=== PATIENT | female | born 1985 | race Caucasian/White ===

== ENCOUNTER 2021-07-15 17:40 | Emergency (ER) | payer SELFPAY ==
[~2021-07-15] VITALS: Ht 154.9 cm; Wt 100.0 kg
[2021-07-15 19:55] LABS: COLLECTION METHOD CLEAN CATCH
[2021-07-15 20:02] LABS: BASO % 0.3 % (0.0-2.0); EOS # 0.1 K/mm3 (0.0-0.7); EOS % 0.7 % (0-4.0); GRAN # 9.9 K/mm3 (1.4-6.5); GRAN % 73.7 % (42.2-75.2); HEMATOCRIT 40.9 % (37.0-47.0); HEMOGLOBIN 13.8 g/dl (12.5-16.0); LYMPH # 2.8 K/mm3 (1.2-3.4); LYMPH % 20.6 % (20.0-51.0); MEAN CELL VOLUME 90 fl (80.0-100.0); MEAN CORPUSCULAR HEMOGLOBIN 30 pg (27.0-31.0); MEAN CORPUSCULAR HGB CONC 34 g/dl (33.0-37.0); MONO # 0.6 K/mm3 (0.1-0.6); MONO % 4.2 % (1.7-9.3); PLATELET COUNT 325 K/mm3 (130-400); RED BLOOD COUNT 4.54 M/mm3 (4.10-5.30); REDCELL DISTRIBUTION WIDTH-CV 12.2 % (11.5-14.5)
[2021-07-15 20:12] LABS: AMORPHOUS CRYSTAL Present (NOT PRESENT); MUCOUS Present (NOT PRESENT); PH 5 (5-8); SQUAMOUS EPITHELIAL 20-50 /hpf (0-10); URINE APPEARANCE Cloudy (CLEAR/HAZY); URINE BACTERIA Rare (NONE SEEN); URINE BILIRUBIN Negative (NEGATIVE); URINE BLOOD Negative (NEGATIVE); URINE COLOR Yellow (YELLOW); URINE GLUCOSE 3+ (NEGATIVE); URINE KETONE Trace (NEGATIVE); URINE LEUKOCYTE ESTERASE Negative (NEGATIVE); URINE NITRATE Negative (NEGATIVE); URINE PROTEIN(semi-quant) Negative (NEGATIVE); URINE UROBILINOGEN Negative (NEGATIVE)
[2021-07-15 20:21] LABS: ALBUMIN 3.7 gm/dL (3.5-5.0); BILIRUBIN,TOTAL 0.4 mg/dL (0.2-1.2); C-REACTIVE PROTEIN 2.08 mg/dL (0.00-0.50); CALCIUM 9.1 mg/dL (8.4-10.2); CREATININE, serum 0.83 mg/dL (0.57-1.11); POTASSIUM 3.7 mmol/L (3.5-4.5); TOTAL PROTEIN 7.2 gm/dL (6.2-8.1)
[2021-07-15] MEDS ORDERED: NORCO 325 MG-51 TAB PO (21:55)
[2021-07-15 22:20] VITALS: BP 136/64; PULSE 88; TEMP 98.6
== END 2021-07-15 22:25 | disposition home or self-care (01) ==
LOC: COL.ER 17:40
PROVIDERS: Family Medicine
DX: D72.829 Elevated white blood cell count, unspecified (principal); I10 Essential (primary) hypertension; Z32.02 Encounter for pregnancy test, result negative
CPT/HCPCS: J0696; J2270; J2405; J7120; Q9967

== ENCOUNTER 2021-07-21 12:49 | Emergency (ER) | payer SELFPAY ==
[~2021-07-21] VITALS: Ht 154.9 cm; Wt 100.0 kg
[~2021-07-21 12:49] MED LIST: NORCO 325 MG-51 TAB PO
[2021-07-21 13:12] VITALS: TEMP 97.9
[2021-07-21 13:25] LABS: COLLECTION METHOD CLEAN CATCH
[2021-07-21 13:36] LABS: MUCOUS Present (NOT PRESENT); PH 6 (5-8); URINE APPEARANCE Hazy (CLEAR/HAZY); URINE BACTERIA None Seen (NONE SEEN); URINE BILIRUBIN Negative (NEGATIVE); URINE BLOOD 3+ (NEGATIVE); URINE COLOR Yellow (YELLOW); URINE GLUCOSE 3+ (NEGATIVE); URINE KETONE Trace (NEGATIVE); URINE LEUKOCYTE ESTERASE Negative (NEGATIVE); URINE NITRATE Negative (NEGATIVE); URINE PROTEIN(semi-quant) 1+ (NEGATIVE); URINE UROBILINOGEN Negative (NEGATIVE)
[2021-07-21] MEDS ORDERED: NAPROSYN500 MG PO (15:46)
[2021-07-21 15:57] VITALS: BP 131/88; PULSE 76
== END 2021-07-21 16:03 | disposition home or self-care (01) ==
LOC: COL.ER 12:49
PROVIDERS: Nurse Practitioner Primary Care
DX: R10.2 Pelvic and perineal pain (principal); I10 Essential (primary) hypertension; E11.9 Type 2 diabetes mellitus without complications; F17.200 Nicotine dependence, unspecified, uncomplicated; Z32.02 Encounter for pregnancy test, result negative

== ENCOUNTER 2021-07-29 15:00 | Emergency (ER) | payer SELFPAY ==
[~2021-07-29] VITALS: Ht 157.5 cm; Wt 100.0 kg
[~2021-07-29 15:00] MED LIST changes: +NAPROSYN500 MG PO
[2021-07-29 15:09] VITALS: TEMP 98.2
[2021-07-29 15:51] LABS: COLLECTION METHOD CATHETER
[2021-07-29 15:57] LABS: PH 6 (5-8); URINE APPEARANCE Hazy (CLEAR/HAZY); URINE BACTERIA Rare /hpf (NONE SEEN); URINE BILIRUBIN Negative (NEGATIVE); URINE BLOOD Negative (NEGATIVE); URINE COLOR Amber (YELLOW); URINE GLUCOSE 3+ (NEGATIVE); URINE KETONE Trace (NEGATIVE); URINE LEUKOCYTE ESTERASE Negative (NEGATIVE); URINE NITRATE Positive (NEGATIVE); URINE PROTEIN(semi-quant) Negative (NEGATIVE); URINE UROBILINOGEN >=4.0 (NEGATIVE)
[2021-07-29 17:43] VITALS: BP 134/71; PULSE 91
== END 2021-07-29 17:43 | disposition home or self-care (01) ==
LOC: COL.ER 15:00
PROVIDERS: Personal Emergency Response Attendant
DX: R10.9 Unspecified abdominal pain (principal); I10 Essential (primary) hypertension; E11.9 Type 2 diabetes mellitus without complications; Z32.02 Encounter for pregnancy test, result negative

== ENCOUNTER 2021-08-02 12:21 | Emergency (ER) | payer SELFPAY ==
[~2021-08-02] VITALS: Ht 157.5 cm; Wt 100.0 kg
[2021-08-02 12:47] VITALS: TEMP 98.2
[2021-08-02 12:57] LABS: COLLECTION METHOD CLEAN CATCH
[2021-08-02 13:10] LABS: AMORPHOUS CRYSTAL Present (NOT PRESENT); MUCOUS Present (NOT PRESENT); PH 6 (5-8); SQUAMOUS EPITHELIAL 20-50 /hpf (0-10); URINE APPEARANCE Cloudy (CLEAR/HAZY); URINE BACTERIA None Seen /hpf (NONE SEEN); URINE BILIRUBIN Negative (NEGATIVE); URINE BLOOD Negative (NEGATIVE); URINE COLOR Yellow (YELLOW); URINE GLUCOSE 3+ (NEGATIVE); URINE KETONE Trace (NEGATIVE); URINE LEUKOCYTE ESTERASE Negative (NEGATIVE); URINE NITRATE Negative (NEGATIVE); URINE PROTEIN(semi-quant) Negative (NEGATIVE); URINE RBC 0-2 /hpf (0-2); URINE UROBILINOGEN Negative (NEGATIVE)
[2021-08-02 14:41] VITALS: BP 148/92; PULSE 82
== END 2021-08-02 14:42 | disposition home or self-care (01) ==
LOC: COL.ER 12:21
PROVIDERS: Emergency Medicine
DX: R10.2 Pelvic and perineal pain (principal); E11.9 Type 2 diabetes mellitus without complications; I10 Essential (primary) hypertension; F17.200 Nicotine dependence, unspecified, uncomplicated

== ENCOUNTER 2021-08-09 09:45 | Emergency (ER) | payer SELFPAY ==
[~2021-08-09] VITALS: Ht 157.5 cm; Wt 100.0 kg
[2021-08-09 10:27] VITALS: BP 138/86; PULSE 101; TEMP 98.2
[2021-08-09 10:39] LABS: COLLECTION METHOD CLEAN CATCH
[2021-08-09 10:58] LABS: MUCOUS Present (NOT PRESENT); PH 6 (5-8); URINE APPEARANCE Cloudy (CLEAR/HAZY); URINE BACTERIA Rare /hpf (NONE SEEN); URINE BILIRUBIN Negative (NEGATIVE); URINE BLOOD Negative (NEGATIVE); URINE COLOR Yellow (YELLOW); URINE GLUCOSE Negative (NEGATIVE); URINE KETONE Negative (NEGATIVE); URINE LEUKOCYTE ESTERASE Negative (NEGATIVE); URINE NITRATE Negative (NEGATIVE); URINE PROTEIN(semi-quant) 1+ (NEGATIVE); URINE RBC 0-2 /hpf (0-2); URINE UROBILINOGEN Negative (NEGATIVE)
== END 2021-08-09 11:42 | disposition left against medical advice (07) ==
LOC: COL.ER 09:45
PROVIDERS: Physician Assistant
DX: R10.9 Unspecified abdominal pain (principal); I10 Essential (primary) hypertension; E11.9 Type 2 diabetes mellitus without complications; Z90.49 Acquired absence of other specified parts of digestive tract

== ENCOUNTER 2021-09-01 08:00 | Emergency (ER) | payer SELFPAY ==
[~2021-09-01] VITALS: Ht 154.9 cm; Wt 100.0 kg
[2021-09-01 08:27] VITALS: TEMP 97.1
[2021-09-01 08:58] LABS: BASO % 0.2 % (0.0-2.0); EOS # 0.1 K/mm3 (0.0-0.7); EOS % 1.1 % (0.0-4.0); GRAN # 9.5 K/mm3 (1.4-6.5); GRAN % 77.4 % (42.2-75.2); HEMATOCRIT 41.7 % (37.0-47.0); HEMOGLOBIN 14.7 g/dl (12.5-16.0); LYMPH % 16.7 % (20.0-51.0); MEAN CELL VOLUME 85 fl (80.0-100.0); MEAN CORPUSCULAR HEMOGLOBIN 30 pg (27-31); MEAN CORPUSCULAR HGB CONC 35 g/dl (33.0-37.0); MEAN PLATELET VOLUME 8.6 fl (7.4-10.4); MONO # 0.5 K/mm3 (0.1-0.6); MONO % 4.2 % (1.7-9.3); PLATELET COUNT 299 K/mm3 (130-400); RED BLOOD COUNT 4.92 M/mm3 (4.10-5.30); REDCELL DISTRIBUTION WIDTH-CV 12.5 % (11.5-14.5)
[2021-09-01 09:14] LABS: ALANINE AMINOTRANSFERASE 16 U/L (0-55); ALBUMIN 3.8 gm/dL (3.5-5.0); ALKALINE PHOSPHATASE 104 U/L (40-150); ANION GAP 11 mmol/L (7-16); AST,SGOT 13 U/L (5-34); BILIRUBIN,TOTAL 0.7 mg/dL (0.2-1.2); BLOOD UREA NITROGEN 10 mg/dL (7-19); CALCIUM 8.9 mg/dL (8.4-10.2); CARBON DIOXIDE 18 mmol/L (22-29); CHLORIDE 106 mmol/L (98-107); CREATININE, serum 0.74 mg/dL (0.57-1.11); GLUCOSE 255 mg/dL (70-99); LIPASE 16 U/L (8-78); POTASSIUM 3.3 mmol/L (3.5-4.5); SODIUM 135 mmol/L (136-145); TOTAL PROTEIN 7.7 gm/dL (6.2-8.1)
[2021-09-01 09:20] LABS: HCG,QUANTITATIVE < 1 mIU/mL
[2021-09-01 10:35] LABS: CLOSTRIDIUM DIFF A/B NEG; CLOSTRIDIUM DIFF A/B INTERP No C.diff present
[2021-09-01] MEDS ORDERED: CIPRO 500MG TA500 MG PO (11:25)
[2021-09-01] MEDS ORDERED: FLAGYL500 MG PO (11:25)
[2021-09-01] MEDS ORDERED: NORCO 325 MG-51 TAB PO (11:26)
[2021-09-01 11:27] VITALS: BP 134/77; PULSE 88
== END 2021-09-01 11:35 | disposition home or self-care (01) ==
LOC: COL.ER 08:00
PROVIDERS: Personal Emergency Response Attendant
DX: K62.89 Other specified diseases of anus and rectum (principal); I10 Essential (primary) hypertension; E11.9 Type 2 diabetes mellitus without complications; Z72.0 Tobacco use; Z90.49 Acquired absence of other specified parts of digestive tract; Z88.1 Allergy status to other antibiotic agents
CPT/HCPCS: J2270; J2405; J7030; Q9967

== ENCOUNTER 2021-10-19 17:26 | Emergency (ER) | payer SELFPAY ==
[~2021-10-19] VITALS: Ht 154.9 cm; Wt 97.7 kg
[~2021-10-19 17:26] MED LIST changes: +CIPRO 500MG TA500 MG PO; +FLAGYL500 MG PO
[2021-10-19 17:45] VITALS: TEMP 98.7
[2021-10-19 18:45] VITALS: BP 179/125; PULSE 101
== END 2021-10-19 18:54 | disposition home or self-care (01) ==
LOC: COL.ER 17:26
DX: M54.50 Low back pain, unspecified (principal); F17.200 Nicotine dependence, unspecified, uncomplicated

== ENCOUNTER 2021-10-22 14:36 | Emergency (ER) | payer SELFPAY ==
[~2021-10-22] VITALS: Ht 154.9 cm; Wt 113.6 kg
[2021-10-22 14:44] VITALS: TEMP 98
[2021-10-22 16:22] LABS: BASO % 0.2 % (0.0-2.0); EOS # 0.1 K/mm3 (0.0-0.7); EOS % 0.7 % (0.0-4.0); GRAN # 9.5 K/mm3 (1.4-6.5); GRAN % 79.9 % (42.2-75.2); HEMATOCRIT 42.6 % (37.0-47.0); HEMOGLOBIN 14.9 g/dl (12.5-16.0); LYMPH # 1.7 K/mm3 (1.2-3.4); LYMPH % 14.3 % (20.0-51.0); MEAN CELL VOLUME 84 fl (80.0-100.0); MEAN CORPUSCULAR HEMOGLOBIN 29 pg (27-31); MEAN CORPUSCULAR HGB CONC 35 g/dl (33.0-37.0); MEAN PLATELET VOLUME 8.8 fl (7.4-10.4); MONO # 0.5 K/mm3 (0.1-0.6); MONO % 4.5 % (1.7-9.3); PLATELET COUNT 285 K/mm3 (130-400); RED BLOOD COUNT 5.08 M/mm3 (4.10-5.30); REDCELL DISTRIBUTION WIDTH-CV 12.5 % (11.5-14.5)
[2021-10-22 16:45] LABS: ALBUMIN 3.9 gm/dL (3.5-5.0); BILIRUBIN,TOTAL 0.6 mg/dL (0.2-1.2); CALCIUM 9.1 mg/dL (8.4-10.2); CREATININE, serum 0.79 mg/dL (0.57-1.11); TOTAL PROTEIN 7.5 gm/dL (6.2-8.1)
[2021-10-22] MEDS ORDERED: BENTYL 20MG20 MG/TAB PO (17:13)
[2021-10-22 17:30] VITALS: BP 169/101; PULSE 85
== END 2021-10-22 17:30 | disposition home or self-care (01) ==
LOC: COL.ER 14:36
PROVIDERS: Emergency Medicine
DX: E11.65 Type 2 diabetes mellitus with hyperglycemia (principal); E87.6 Hypokalemia; R10.30 Lower abdominal pain, unspecified; F17.210 Nicotine dependence, cigarettes, uncomplicated
CPT/HCPCS: J3010

== ENCOUNTER 2021-10-29 14:54 | Emergency (ER) | payer SELFPAY ==
[~2021-10-29] VITALS: Ht 154.9 cm; Wt 97.7 kg
[~2021-10-29 14:54] MED LIST changes: +BENTYL 20MG20 MG/TAB PO
[2021-10-29 15:00] VITALS: BP 184/93; TEMP 98
[2021-10-29 15:39] LABS: COLLECTION METHOD CLEAN CATCH
[2021-10-29 15:50] LABS: MUCOUS Present (NOT PRESENT); PH 6 (5-8); SQUAMOUS EPITHELIAL 20-50 /hpf (0-10); URINE APPEARANCE Cloudy (CLEAR/HAZY); URINE BACTERIA None Seen /hpf (NONE SEEN); URINE BILIRUBIN Negative (NEGATIVE); URINE BLOOD Negative (NEGATIVE); URINE COLOR Yellow (YELLOW); URINE GLUCOSE 3+ (NEGATIVE); URINE KETONE Trace (NEGATIVE); URINE LEUKOCYTE ESTERASE Negative (NEGATIVE); URINE NITRATE Negative (NEGATIVE); URINE PROTEIN(semi-quant) Negative (NEGATIVE); URINE UROBILINOGEN Negative (NEGATIVE)
[2021-10-29] MEDS ORDERED: INDOCIN 25MG CA25 MG PO (15:51)
[2021-10-29] MEDS ORDERED: FLEXERIL 1010 MG/TAB PO (15:51)
[2021-10-29] MEDS ORDERED: ULTRAM 50MG TAB50 MG PO (15:51)
[2021-10-29] MEDS ORDERED: SALONPAS1 EACH TP (17:13)
[2021-10-29 17:44] VITALS: PULSE 98
== END 2021-10-29 17:45 | disposition home or self-care (01) ==
LOC: COL.ER 14:54
PROVIDERS: Nurse Practitioner Primary Care
DX: M54.50 Low back pain, unspecified (principal); Z88.6 Allergy status to analgesic agent
CPT/HCPCS: J3360

== ENCOUNTER 2021-11-08 23:05 | Emergency (ER) | payer SELFPAY ==
[~2021-11-08] VITALS: Ht 154.9 cm; Wt 97.7 kg
[~2021-11-08 23:05] MED LIST changes: +FLEXERIL 1010 MG/TAB PO; +INDOCIN 25MG CA25 MG PO; +SALONPAS1 EACH TP; +ULTRAM 50MG TAB50 MG PO
[2021-11-08 23:14] VITALS: TEMP 98
[2021-11-09 00:57] VITALS: BP 138/80; PULSE 91
[2021-11-09] MEDS ORDERED: MEDROL 4MG DOSPA4 MG PO (00:59)
--- NOTE | 2021-11-09 10:44 | NUR ---
Digital Project Manager received consult for patient who visited the ED last night for complaints of back pain. Per ED notes, patient has had difficulty securing an appointment at [facility] in . SW contacted patient who confirmed she lives in [place] and also reported that she makes very little income. 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 Patient does not have health insurance. SW provided information about [facility] and patient stated she would call them to schedule an appointment.
== END 2021-11-09 00:53 | disposition home or self-care (01) ==
LOC: COL.ER 23:05
DX: G89.29 Other chronic pain (principal); M54.50 Low back pain, unspecified; F17.200 Nicotine dependence, unspecified, uncomplicated; Z88.6 Allergy status to analgesic agent
CPT/HCPCS: J2360

== ENCOUNTER 2021-11-18 17:55 | Emergency (ER) | payer SELFPAY ==
[~2021-11-18] VITALS: Ht 154.9 cm; Wt 97.7 kg
[~2021-11-18 17:55] MED LIST changes: +MEDROL 4MG DOSPA4 MG PO
[2021-11-18 18:03] VITALS: BP 133/77; TEMP 98.8
[2021-11-18 18:44] VITALS: PULSE 83
== END 2021-11-18 18:44 | disposition home or self-care (01) ==
LOC: COL.ER 17:55
DX: N63.11 Unspecified lump in the right breast, upper outer quadrant (principal); F17.210 Nicotine dependence, cigarettes, uncomplicated

== ENCOUNTER 2021-12-09 11:00 | Emergency (ER) | payer SELFPAY ==
[~2021-12-09] VITALS: Ht 154.9 cm; Wt 97.7 kg
[2021-12-09 11:20] VITALS: TEMP 98.6
[2021-12-09] MEDS ORDERED: NORVASC 5MG5 MG/TAB PO (11:29)
[2021-12-09] MEDS ORDERED: LEVEMIR FLEX100 U/ML SQ (11:30)
[2021-12-09] MEDS ORDERED: NOVOLOG FLEX100 U/ML SQ (11:30)
[2021-12-09 12:07] LABS: BASO % 0.3 % (0.0-2.0); EOS # 0.1 K/mm3 (0.0-0.7); EOS % 1.1 % (0.0-4.0); GRAN # 8.8 K/mm3 (1.4-6.5); GRAN % 75.6 % (42.2-75.2); HEMATOCRIT 41.5 % (37.0-47.0); HEMOGLOBIN 14.7 g/dl (12.5-16.0); LYMPH # 2.2 K/mm3 (1.2-3.4); LYMPH % 18.5 % (20.0-51.0); MEAN CELL VOLUME 83 fl (80.0-100.0); MEAN CORPUSCULAR HEMOGLOBIN 30 pg (27-31); MEAN CORPUSCULAR HGB CONC 35 g/dl (33.0-37.0); MEAN PLATELET VOLUME 8.5 fl (7.4-10.4); MONO # 0.5 K/mm3 (0.1-0.6); MONO % 4.1 % (1.7-9.3); PLATELET COUNT 306 K/mm3 (130-400); RED BLOOD COUNT 4.99 M/mm3 (4.10-5.30); REDCELL DISTRIBUTION WIDTH-CV 12.2 % (11.5-14.5)
[2021-12-09 12:17] LABS: ALANINE AMINOTRANSFERASE 27 U/L (0-55); ALBUMIN 3.9 gm/dL (3.5-5.0); ALKALINE PHOSPHATASE 113 U/L (40-150); ANION GAP 12 mmol/L (7-16); AST,SGOT 27 U/L (5-34); BILIRUBIN,TOTAL 0.7 mg/dL (0.2-1.2); BLOOD UREA NITROGEN 5 mg/dL (7-19); CALCIUM 8.7 mg/dL (8.4-10.2); CARBON DIOXIDE 20 mmol/L (22-29); CHLORIDE 104 mmol/L (98-107); CREATININE, serum 0.69 mg/dL (0.57-1.11); GLUCOSE 238 mg/dL (70-99); SODIUM 136 mmol/L (136-145); TOTAL PROTEIN 6.9 gm/dL (6.2-8.1)
[2021-12-09 12:28] LABS: TROPONIN-I < 0.010 ng/mL (0.00-0.033)
[2021-12-09] MEDS ORDERED: PRINIVIL10 MG PO (13:57)
[2021-12-09 14:00] VITALS: BP 147/85; PULSE 110
== END 2021-12-09 14:38 | disposition home or self-care (01) ==
LOC: COL.ER 11:00
PROVIDERS: Physician Assistant
DX: R07.89 Other chest pain (principal); I10 Essential (primary) hypertension; E87.6 Hypokalemia; F17.210 Nicotine dependence, cigarettes, uncomplicated; Z79.899 Other long term (current) drug therapy
CPT/HCPCS: J0360; J2060; J2405; J7030; Q9967

== ENCOUNTER 2022-01-12 21:21 | Emergency (ER) | payer SELFPAY ==
[~2022-01-12] VITALS: Ht 154.9 cm; Wt 93.2 kg
[~2022-01-12 21:21] MED LIST changes: +LEVEMIR FLEX100 U/ML SQ; +NORVASC 5MG5 MG/TAB PO; +NOVOLOG FLEX100 U/ML SQ; +PRINIVIL10 MG PO
[2022-01-12 21:31] VITALS: TEMP 97.1
[2022-01-12 22:14] LABS: BASO % 0.3 % (0.0-2.0); EOS # 0.1 K/mm3 (0.0-0.7); EOS % 1.2 % (0.0-4.0); GRAN # 8.3 K/mm3 (1.4-6.5); GRAN % 72.2 % (42.2-75.2); HEMATOCRIT 38.8 % (37.0-47.0); HEMOGLOBIN 13.4 g/dl (12.5-16.0); LYMPH # 2.5 K/mm3 (1.2-3.4); LYMPH % 21.6 % (20.0-51.0); MEAN CELL VOLUME 86 fl (80.0-100.0); MEAN CORPUSCULAR HEMOGLOBIN 30 pg (27-31); MEAN CORPUSCULAR HGB CONC 35 g/dl (33.0-37.0); MONO # 0.5 K/mm3 (0.1-0.6); MONO % 4.3 % (1.7-9.3); PLATELET COUNT 280 K/mm3 (130-400); RED BLOOD COUNT 4.54 M/mm3 (4.10-5.30); REDCELL DISTRIBUTION WIDTH-CV 11.9 % (11.5-14.5)
[2022-01-12 22:28] LABS: ALANINE AMINOTRANSFERASE 14 U/L (0-55); ALBUMIN 3.2 gm/dL (3.5-5.0); ALKALINE PHOSPHATASE 89 U/L (40-150); ANION GAP 13 mmol/L (7-16); AST,SGOT 11 U/L (5-34); BILIRUBIN,TOTAL 0.4 mg/dL (0.2-1.2); BLOOD UREA NITROGEN 8 mg/dL (7-19); CARBON DIOXIDE 21 mmol/L (22-29); CHLORIDE 103 mmol/L (98-107); CREATININE, serum 0.77 mg/dL (0.57-1.11); GLUCOSE 333 mg/dL (70-99); POTASSIUM 3.3 mmol/L (3.5-4.5); SODIUM 137 mmol/L (136-145); TOTAL PROTEIN 6.5 gm/dL (6.2-8.1)
[2022-01-12 22:35] LABS: TROPONIN-I < 0.010 ng/mL (0.00-0.033)
[2022-01-12 23:45] VITALS: BP 151/84; PULSE 78
== END 2022-01-12 23:45 | disposition home or self-care (01) ==
LOC: COL.ER 21:21
PROVIDERS: Nurse Practitioner
DX: R07.89 Other chest pain (principal); I10 Essential (primary) hypertension; F17.210 Nicotine dependence, cigarettes, uncomplicated; Z28.310 Unvaccinated for COVID-19; Z79.899 Other long term (current) drug therapy
CPT/HCPCS: J2270; J2405

== ENCOUNTER 2022-01-28 19:43 | Emergency (ER) | payer SELFPAY ==
[~2022-01-28] VITALS: Ht 154.9 cm; Wt 93.2 kg
[2022-01-28 19:50] VITALS: TEMP 98
[2022-01-28] MEDS ORDERED: GLUCOTROL 5M5 MG/TAB PO (19:54)
[2022-01-28] MEDS ORDERED: GLUCOPHAGE500 MG/TAB PO (19:54)
[2022-01-28 20:36] LABS: BASO % 0.3 % (0.0-2.0); EOS # 0.1 K/mm3 (0.0-0.7); EOS % 1.1 % (0.0-4.0); GRAN # 8.4 K/mm3 (1.4-6.5); GRAN % 71.6 % (42.2-75.2); HEMOGLOBIN 13.9 g/dl (12.5-16.0); LYMPH # 2.7 K/mm3 (1.2-3.4); LYMPH % 22.9 % (20.0-51.0); MEAN CELL VOLUME 86 fl (80.0-100.0); MEAN CORPUSCULAR HEMOGLOBIN 30 pg (27-31); MEAN CORPUSCULAR HGB CONC 35 g/dl (33.0-37.0); MEAN PLATELET VOLUME 8.6 fl (7.4-10.4); MONO # 0.5 K/mm3 (0.1-0.6); MONO % 3.9 % (1.7-9.3); PLATELET COUNT 323 K/mm3 (130-400); RED BLOOD COUNT 4.66 M/mm3 (4.10-5.30); REDCELL DISTRIBUTION WIDTH-CV 11.9 % (11.5-14.5)
[2022-01-28 20:55] LABS: ALANINE AMINOTRANSFERASE 24 U/L (0-55); ALBUMIN 3.6 gm/dL (3.5-5.0); ALKALINE PHOSPHATASE 110 U/L (40-150); ANION GAP 12 mmol/L (7-16); AST,SGOT 23 U/L (5-34); BILIRUBIN,TOTAL 0.4 mg/dL (0.2-1.2); BLOOD UREA NITROGEN 9 mg/dL (7-19); CALCIUM 9.2 mg/dL (8.4-10.2); CARBON DIOXIDE 21 mmol/L (22-29); CHLORIDE 103 mmol/L (98-107); CREATININE, serum 0.88 mg/dL (0.57-1.11); GLUCOSE 289 mg/dL (70-99); POTASSIUM 3.3 mmol/L (3.5-4.5); SODIUM 136 mmol/L (136-145); TOTAL PROTEIN 7.3 gm/dL (6.2-8.1)
[2022-01-28 21:11] LABS: TROPONIN-I < 0.010 ng/mL (0.00-0.033)
[2022-01-28] MEDS ORDERED: PRINIVIL20 MG PO (21:40)
[2022-01-29 03:51] VITALS: BP 174/97; PULSE 83
== END 2022-01-28 23:38 | disposition home or self-care (01) ==
LOC: COL.ER 19:43
PROVIDERS: Physician Assistant
DX: I10 Essential (primary) hypertension (principal); E66.9 Obesity, unspecified; Z68.38 Body mass index [BMI] 38.0-38.9, adult; F17.200 Nicotine dependence, unspecified, uncomplicated
CPT/HCPCS: J2270; J2405

== ENCOUNTER 2022-02-19 22:40 | Emergency (ER) | payer SELFPAY ==
[~2022-02-19] VITALS: Ht 154.9 cm; Wt 93.2 kg
[~2022-02-19 22:40] MED LIST changes: +GLUCOPHAGE500 MG/TAB PO; +GLUCOTROL 5M5 MG/TAB PO; +PRINIVIL20 MG PO
[2022-02-19 23:10] VITALS: BP 168/117; TEMP 97.8
[2022-02-20] MEDS ORDERED: NORCO 325 MG-51 TAB PO (00:20)
[2022-02-20 00:44] VITALS: PULSE 93
== END 2022-02-20 00:44 | disposition home or self-care (01) ==
LOC: COL.ER 22:40
DX: G89.29 Other chronic pain (principal); M54.50 Low back pain, unspecified; K64.4 Residual hemorrhoidal skin tags; F17.200 Nicotine dependence, unspecified, uncomplicated; Z88.5 Allergy status to narcotic agent

== ENCOUNTER 2022-03-05 17:12 | Emergency (ER) | payer SELFPAY ==
[~2022-03-05] VITALS: Ht 154.9 cm; Wt 93.2 kg
[2022-03-05 17:19] VITALS: BP 186/90; PULSE 105; TEMP 98.2
== END 2022-03-05 18:06 | disposition home or self-care (01) ==
LOC: COL.ER 17:12
DX: M54.50 Low back pain, unspecified (principal); G89.29 Other chronic pain; F17.210 Nicotine dependence, cigarettes, uncomplicated

== ENCOUNTER 2022-04-25 21:26 | Emergency (ER) | payer SELFPAY ==
[~2022-04-25] VITALS: Ht 154.9 cm; Wt 92.3 kg
[2022-04-25 21:34] VITALS: TEMP 98.8
[2022-04-25 22:23] VITALS: BP 178/97; PULSE 61
== END 2022-04-25 23:22 | disposition home or self-care (01) ==
LOC: COL.ER 21:26
DX: R07.89 Other chest pain (principal)

== ENCOUNTER 2022-09-03 19:30 | Emergency (ER) | payer SELFPAY ==
[~2022-09-03] VITALS: Ht 154.9 cm; Wt 85.0 kg
[~2022-09-03 19:30] MED LIST changes: +CEPHALEXIN500 M1 PO; +K-DUR20 MEQ PO; +ZOFRAN ODT4 MG PO
[2022-09-03 19:39] VITALS: TEMP 97.8
[2022-09-03 20:08] LABS: BASO % 0.3 % (0.0-2.0); EOS # 0.1 K/mm3 (0.0-0.7); EOS % 1.1 % (0.0-4.0); GRAN # 9.3 K/mm3 (1.4-6.5); GRAN % 74.4 % (42.2-75.2); HEMOGLOBIN 12.1 g/dl (12.5-16.0); LYMPH # 2.4 K/mm3 (1.2-3.4); LYMPH % 19.3 % (20.0-51.0); MEAN CELL VOLUME 86 fl (80.0-100.0); MEAN CORPUSCULAR HEMOGLOBIN 31 pg (27-31); MEAN CORPUSCULAR HGB CONC 36 g/dl (33.0-37.0); MEAN PLATELET VOLUME 8.5 fl (7.4-10.4); MONO # 0.6 K/mm3 (0.1-0.6); MONO % 4.4 % (1.7-9.3); PLATELET COUNT 323 K/mm3 (130-400); RED BLOOD COUNT 3.96 M/mm3 (4.10-5.30); REDCELL DISTRIBUTION WIDTH-CV 12.1 % (11.5-14.5)
[2022-09-03 20:11] LABS: HEMATOCRIT 33.9 % (37.0-47.0)
[2022-09-03 20:27] LABS: ALBUMIN 3.4 gm/dL (3.5-5.0); BILIRUBIN,TOTAL 0.3 mg/dL (0.2-1.2); CALCIUM 9.5 mg/dL (8.4-10.2); CREATININE, serum 0.99 mg/dL (0.57-1.11); POTASSIUM 3.1 mmol/L (3.5-4.5); TOTAL PROTEIN 7.1 gm/dL (6.2-8.1); TROPONIN-I 0.01 ng/mL (0.00-0.033)
[2022-09-03 21:27] VITALS: BP 132/81; PULSE 80
== END 2022-09-03 21:30 | disposition home or self-care (01) ==
LOC: COL.ER 19:30
PROVIDERS: Nurse Practitioner Primary Care
DX: J06.9 Acute upper respiratory infection, unspecified (principal); R07.89 Other chest pain; F17.200 Nicotine dependence, unspecified, uncomplicated; Z20.822 Contact with and (suspected) exposure to COVID-19
CPT/HCPCS: J2405

== ENCOUNTER 2022-09-30 16:00 | Emergency (ER) | payer SELFPAY ==
[~2022-09-30] VITALS: Ht 154.9 cm; Wt 84.1 kg
[2022-09-30 16:05] VITALS: BP 172/97; TEMP 98.6
[2022-09-30] MEDS ORDERED: ROBAXIN 75750 MG/TAB PO (16:39)
[2022-09-30 17:11] VITALS: PULSE 109
== END 2022-09-30 17:12 | disposition home or self-care (01) ==
LOC: COL.ER 16:00
DX: M54.50 Low back pain, unspecified (principal); F17.290 Nicotine dependence, other tobacco product, uncomplicated

== ENCOUNTER 2022-10-08 15:26 | Emergency (ER) | payer SELFPAY ==
[~2022-10-08] VITALS: Ht 154.9 cm; Wt 85.0 kg
[~2022-10-08 15:26] MED LIST changes: +ROBAXIN 75750 MG/TAB PO
[2022-10-08 15:50] VITALS: TEMP 98.3
[2022-10-08 18:10] LABS: BASO % 0.3 % (0.0-2.0); EOS # 0.2 K/mm3 (0.0-0.7); EOS % 1.1 % (0.0-4.0); GRAN % 71.2 % (42.2-75.2); HEMATOCRIT 39.6 % (37.0-47.0); HEMOGLOBIN 13.4 g/dl (12.5-16.0); LYMPH # 3.3 K/mm3 (1.2-3.4); LYMPH % 23.4 % (20.0-51.0); MEAN CELL VOLUME 90 fl (80.0-100.0); MEAN CORPUSCULAR HEMOGLOBIN 30 pg (27-31); MEAN CORPUSCULAR HGB CONC 34 g/dl (33.0-37.0); MEAN PLATELET VOLUME 8.7 fl (7.4-10.4); MONO # 0.5 K/mm3 (0.1-0.6); MONO % 3.6 % (1.7-9.3); PLATELET COUNT 332 K/mm3 (130-400); RED BLOOD COUNT 4.41 M/mm3 (4.10-5.30); REDCELL DISTRIBUTION WIDTH-CV 12.7 % (11.5-14.5)
[2022-10-08 18:12] LABS: COLLECTION METHOD CLEAN CATCH
[2022-10-08 18:15] LABS: URINE APPEARANCE Cloudy (CLEAR/HAZY); URINE BLOOD Negative (NEGATIVE); URINE COLOR Yellow (YELLOW); URINE GLUCOSE Negative (NEGATIVE); URINE KETONE Negative (NEGATIVE); URINE NITRATE Negative (NEGATIVE); URINE PROTEIN(semi-quant) 1+ (NEGATIVE); URINE UROBILINOGEN 0.2 E.U/dL (0.2-1.0)
[2022-10-08 18:21] LABS: AMORPHOUS CRYSTAL Present (NOT PRESENT); MUCOUS Present (NOT PRESENT); SQUAMOUS EPITHELIAL 20-50 /hpf (0-10); URINE BACTERIA Rare /hpf (NONE SEEN)
[2022-10-08 18:30] LABS: ALBUMIN 3.8 gm/dL (3.5-5.0); BILIRUBIN,TOTAL 0.5 mg/dL (0.2-1.2); CALCIUM 9.3 mg/dL (8.4-10.2); CREATININE, serum 0.89 mg/dL (0.57-1.11); POTASSIUM 3.2 mmol/L (3.5-4.5); TOTAL PROTEIN 7.5 gm/dL (6.2-8.1)
[2022-10-08 18:40] VITALS: BP 115/61; PULSE 87
== END 2022-10-08 18:51 | disposition home or self-care (01) ==
LOC: COL.ER 15:26
PROVIDERS: Physician Assistant
DX: G89.29 Other chronic pain (principal); R10.9 Unspecified abdominal pain; E11.65 Type 2 diabetes mellitus with hyperglycemia; E87.6 Hypokalemia; M54.9 Dorsalgia, unspecified; D72.829 Elevated white blood cell count, unspecified; F17.210 Nicotine dependence, cigarettes, uncomplicated; Z79.4 Long term (current) use of insulin; Z20.822 Contact with and (suspected) exposure to COVID-19; Z90.49 Acquired absence of other specified parts of digestive tract
CPT/HCPCS: J1790

== ENCOUNTER 2023-01-02 20:46 | Emergency (ER) | payer SELFPAY ==
[~2023-01-02] VITALS: Ht 154.9 cm; Wt 82.7 kg
[2023-01-02 20:52] VITALS: TEMP 99.2
[2023-01-02] MEDS ORDERED: FLEXERIL5 MG PO (21:22)
[2023-01-02 21:45] VITALS: BP 140/88; PULSE 95
== END 2023-01-02 21:46 | disposition home or self-care (01) ==
LOC: COL.ER 20:46
DX: M54.50 Low back pain, unspecified (principal); G89.29 Other chronic pain; F17.210 Nicotine dependence, cigarettes, uncomplicated

== ENCOUNTER 2023-01-04 09:26 | Emergency (ER) | payer SELFPAY ==
[~2023-01-04] VITALS: Ht 154.9 cm; Wt 82.7 kg
[~2023-01-04 09:26] MED LIST changes: +FLEXERIL5 MG PO
[2023-01-04 09:30] VITALS: BP 144/84; TEMP 98
[2023-01-04 11:07] VITALS: PULSE 86
== END 2023-01-04 11:09 | disposition home or self-care (01) ==
LOC: COL.ER 09:26
DX: M54.50 Low back pain, unspecified (principal); G89.29 Other chronic pain; F17.210 Nicotine dependence, cigarettes, uncomplicated; F17.290 Nicotine dependence, other tobacco product, uncomplicated
CPT/HCPCS: J2270